=== PATIENT | female | born 1990 | race Caucasian/White ===

== ENCOUNTER → 2024-01-12 10:39 | Outpatient (REF) | payer OTHER, SELFPAY | LOC: PNTC 10:39 | PROVIDERS: ATTENDING PHYSICIAN Obstetrics & Gynecology | DX: O09.529 Supervision of elderly multigravida, unspecified trimester (principal) | CPT/HCPCS: 76816 ==

== ENCOUNTER 2024-04-03 15:08 | Inpatient (IN) | payer OTHER, SELFPAY ==
[2024-04-03] MEDS: PITOCIN 10 UNITS IM (15:28)
[2024-04-03] MEDS: PITOCIN 30 UNITS/NSS 500 ML IV (15:53)
[2024-04-03 16:05] LABS: % Basophils 0.2 % (0-2); % Eosinophils 0.2 % (0-6); % Immature Granulocytes 0.4 % (0-0.5); % Lymphocytes 22.1 % (20.5-51.1); % Monocytes 5.2 % (1.7-9.3); % Neutrophils 71.9 % (42.2-75.2); Absolute Immature Granulocytes 0.1 10^3/uL (0-0.05); Absolute Monocytes 0.7 10^3/uL (0.1-0.6); Absolute Neutrophils 9.8 10^3/uL (1.4-6.5); Hematocrit 40.2 % (37.0-47.0); Hemoglobin 14.1 g/dL (12.0-16.0); Mean Corp Hgb Conc. 35.1 g/dL (33.0-37.0); Mean Corpuscular Hgb 31.1 pg (27.0-31.0); Mean Corpuscular Volume 88.5 fL (81.0-99.0); Mean Platelet Volume 12.2 fL (7.4-10.4); Nucleated Red Blood Cells % 0 %; Platelet Count 131 10^3/uL (130-400); Red Blood Cell Count 4.54 10^6/uL (4.20-5.40); Red Cell Dist. Width 12.7 % (11.5-14.5); White Blood Cell Count 13.6 10^3/uL (4.8-10.8)
[2024-04-03 16:07] VITALS: BP 157/132; BMI 28.0
[2024-04-03 16:20] LABS: ALT (SGPT) 16 U/L (0-35); AST (SGOT) 26 U/L (14-36); Albumin 3.8 g/dl (3.5-5.0); Alkaline Phosphatase 231 U/L (38-126); Blood Urea Nitrogen 10 mg/dl (7-17); Calcium 9.6 mg/dl (8.4-10.2); Carbon Dioxide 20 mmol/L (22-30); Chloride 101 mmol/L (98-107); Estimated Creatinine Clearance > 125 ml/min; Glucose 95 mg/dl (70-99); Potassium 3.7 mmol/L (3.5-5.1); Sodium 133 mmol/L (135-145); Total Bilirubin 0.4 mg/dl (0.2-1.3); Total Protein 7.2 g/dl (6.3-8.2); Uric Acid 6.6 mg/dl (2.5-6.2); eGFR > 60.00
[2024-04-03] MEDS: MOTRIN 600 MG PO ×2 (17:08→23:11)
[2024-04-03] MEDS: TYLENOL 650 MG PO (19:27)
[2024-04-04 04:36] LABS: Hematocrit 33.7 % (37.0-47.0); Hemoglobin 11.6 g/dL (12.0-16.0)
[2024-04-04] MEDS: MOTRIN 600 MG PO ×3 (06:34→20:28)
[2024-04-04] MEDS: PRENATAL PLUS 1 TABLET PO (08:32)
[2024-04-04] MEDS: TYLENOL 650 MG PO ×3 (09:08→20:28)
[2024-04-04] MEDS: SENOKOT-S 1 TABLET PO (09:08)
[2024-04-05] MEDS: TYLENOL 650 MG PO ×2 (00:28→08:26)
[2024-04-05] MEDS: MOTRIN 600 MG PO ×2 (03:37→11:35)
[2024-04-05] MEDS: PRENATAL PLUS 1 TABLET PO (08:26)
[2024-04-05] MEDS: SENOKOT-S 1 TABLET PO (08:26)
[2024-04-05 16:06] LABS: Syphilis/T. pallidum Ab Reflex Negative (Negative)
== END 2024-04-05 13:03 | disposition home or self-care (01) | DRG 807 ==
LOC: LDRP 15:08
PROVIDERS: ADMITTING PHYSICIAN Obstetrics & Gynecology; FAMILY PHYSICIAN Family Medicine
PROC: 0KQM0ZZ Repair Perineum Muscle, Open Approach (ICD-10-PCS; 2024-04-03)
PROC: 10E0XZZ Delivery of Products of Conception, External Approach (ICD-10-PCS; 2024-04-03)
DX: O48.0 Post-term pregnancy (principal); Z37.0 Single live birth; Z3A.40 40 weeks gestation of pregnancy; O77.0 Labor and delivery complicated by meconium in amniotic fluid; O70.1 Second degree perineal laceration during delivery
CPT/HCPCS: 36415; 80053; 84550; 85014; 85018; 85025; 86780; 86850; 86900; 86901; 87070